=== PATIENT | female | born 1940 | race African-American/Black ===

== ENCOUNTER 2019-06-16 17:12 | Inpatient (IN) ==
[2019-06-16] MEDS ORDERED: ACETAMINOPHEN 325 MG TABLET PO PRN (19:47)
[2019-06-16] MEDS ORDERED: ALBUTEROL 2.5 MG/3 ML NEB RESP TX PRN (19:47)
[2019-06-16] MEDS ORDERED: AZITHROMYCIN INJ 500 MG in SODIUM CHLORIDE 0.9% 250 ML IV SCH (20:30)
[2019-06-16] MEDS: cefTRIAXone 1,000 MG in SYRINGE 1 EACH IV SCH (21:04)
[2019-06-16] MEDS: ENOXAPARIN 30 MG/0.3 ML SYRINGE SUBCUT SCH (21:05)
[2019-06-16] MEDS: OSELTAMIVIR 30 MG CAPSULE PO SCH (21:06)
[2019-06-17] MEDS: ALBUTEROL/IPRATROPIUM 3 ML NEB RESP TX SCH ×4 (00:39→20:20)
[2019-06-17 04:41] LABS: Amorphous Crystals,Urine Occasional /HPF (Few); Apearance,Urine CLOUDY (Clear); Bacteria,Urine Moderate /HPF (Few); Bilirubin,Urine Negative (Negative); Blood, Urine Small mg/dL (Negative); Glucose,Urine (UA) Negative (Negative); Hyaline Casts,Urine 3 /LPF (0-3); Ketones,Urine Negative (Negative); Mucus,Urine Occasional /LPF (Occasional); Nitrite,Urine Negative (Negative); Protein,Urine 30 MG/DL; RBC,Urine 4 /HPF (0-4); Squamous Epithelial Cell,Urine Few /HPF (0-10); Urine Color Amber (Yellow); Urine Specific Gravity 1.016 (1.001-1.035); WBC,Urine 1 /HPF (0-6)
[2019-06-17 07:53] LABS: Basophils % 0.2 % (0.0-0.8); Hematocrit 28.9 VOL% (35.7-47.0); Immature Granulocytes % 0.6 %; Immature Granulocytes Absolute 0.04 #; Lymphocytes % 14.9 % (21.3-54.2); Mean Corpuscular HGB Conc 31.1 GM/DL (32-36); Mean Corpuscular Volume 81.6 FL (87-102); Mean Platelet Volume 11.1 FL (9.6-12.0); Monocytes % 3.5 % (1.7-12.7); Neutrophils % 80.8 % (38.7-73.9); Platelet Count 223 T/CUMM (130-400); Red Blood Count 3.54 MC/CUMM (3.8-5.5); Red Cell Distribution Width 14.3 % (9.3-17.3); White Blood Count 6.4 T/CUMM (4-12)
[2019-06-17 08:10] LABS: Bilirubin,Total 0.5 MG/DL (0.2-1.0); Calcium 8.5 MG/DL (8.5-10.1); Osmolality,Calculated 286.5 MOS/KG (273-304); Total Protein 8.3 G/DL (6.4-8.3)
[2019-06-17 08:38] LABS: Atypical Lymphocytes Few; Band Neutrophils 1 % (0-10); Hypochromasia 1+; Lymphocytes 20 % (20-55); Microcytosis Slight; Segmented Neutrophils 76 % (50-85); Total Cells Counted 100
[2019-06-17 08:39] LABS: Acanthocytes Few; Ovalocytes Slight; Platelet Estimate Normal
[2019-06-17] MEDS: PANTOPRAZOLE 40 MG TABLET PO SCH (09:29)
[2019-06-17] MEDS: OSELTAMIVIR 30 MG CAPSULE PO SCH ×2 (09:29→21:03)
[2019-06-17] MEDS: AZITHROMYCIN 250 MG TABLET PO SCH (12:20)
[2019-06-17] MEDS: DEXTROSE 5% NACL 0.45% 1,000 ML IV SCH (14:24)
[2019-06-17] MEDS: ENOXAPARIN 30 MG/0.3 ML SYRINGE SUBCUT SCH (21:03)
[2019-06-17] MEDS: cefTRIAXone 1,000 MG in SYRINGE 1 EACH IV SCH (21:03)
[2019-06-17] MEDS: SIMVASTATIN 20 MG TABLET PO SCH (21:03)
[2019-06-18] MEDS: ALBUTEROL/IPRATROPIUM 3 ML NEB RESP TX SCH ×4 (01:15→19:20)
[2019-06-18] MEDS: DEXTROSE 5% NACL 0.45% 1,000 ML IV SCH ×2 (03:08→16:53)
[2019-06-18 05:40] LABS: Calcium 8.4 MG/DL (8.5-10.1); Osmolality,Calculated 287.5 MOS/KG (273-304)
[2019-06-18] MEDS: OSELTAMIVIR 30 MG CAPSULE PO SCH ×2 (08:19→22:20)
[2019-06-18] MEDS: ATENOLOL 50 MG TABLET PO SCH (08:19)
[2019-06-18] MEDS: PANTOPRAZOLE 40 MG TABLET PO SCH (08:19)
[2019-06-18] MEDS: AZITHROMYCIN 250 MG TABLET PO SCH (08:19)
[2019-06-18] MEDS ORDERED: INFLUENZA VIRUS VACCINE 0.5 ML SYRINGE IM ONE (09:00)
[2019-06-18] MEDS ORDERED: PNEUMOCOCCAL VACCINE (13 VALENT) 0.5 ML SYRINGE IM ONE (09:00)
[2019-06-18] MEDS: POTASSIUM CHLORIDE 20 MEQ TABLET PO PRN ×3 (16:53→22:19)
[2019-06-18] MEDS: cefTRIAXone 1,000 MG in SYRINGE 1 EACH IV SCH (20:57)
[2019-06-18] MEDS: ENOXAPARIN 30 MG/0.3 ML SYRINGE SUBCUT SCH (20:57)
[2019-06-18] MEDS: SIMVASTATIN 20 MG TABLET PO SCH (20:58)
[2019-06-19] MEDS: POTASSIUM CHLORIDE 20 MEQ TABLET PO PRN (00:13)
[2019-06-19] MEDS: ALBUTEROL/IPRATROPIUM 3 ML NEB RESP TX SCH ×4 (00:18→19:26)
[2019-06-19 05:26] LABS: Basophils % 0.2 % (0.0-0.8); Eosinophils # 0.1 10*3/uL (0.0-0.87); Eosinophils % 0.5 % (0.00-10.9); Hematocrit 31.6 VOL% (35.7-47.0); Hemoglobin 9.7 GM/DL (12.0-16.0); Immature Granulocytes % 1.1 %; Lymphocytes # 1.8 10*3/uL (1.4-4.0); Lymphocytes % 19.3 % (21.3-54.2); Mean Corpuscular HGB Conc 30.7 GM/DL (32-36); Mean Corpuscular Volume 82.9 FL (87-102); Mean Platelet Volume 11.3 FL (9.6-12.0); Monocytes % 5.3 % (1.7-12.7); Neutrophils % 73.6 % (38.7-73.9); Platelet Count 277 T/CUMM (130-400); Red Blood Count 3.81 MC/CUMM (3.8-5.5); Red Cell Distribution Width 14.6 % (9.3-17.3); White Blood Count 9.2 T/CUMM (4-12)
[2019-06-19 05:58] LABS: Calcium 8.4 MG/DL (8.5-10.1); Osmolality,Calculated 281.7 MOS/KG (273-304)
[2019-06-19] MEDS ORDERED: MAGNESIUM SULF RIDER 2 GM in PREMIX 1 EACH IV PRN (09:31)
[2019-06-19] MEDS ORDERED: MAGNESIUM SULF RIDER 4 GM in PREMIX 1 EACH IV PRN (09:31)
[2019-06-19] MEDS: AZITHROMYCIN 250 MG TABLET PO SCH (09:43)
[2019-06-19] MEDS: PANTOPRAZOLE 40 MG TABLET PO SCH (09:44)
[2019-06-19] MEDS: OSELTAMIVIR 30 MG CAPSULE PO SCH ×2 (09:44→21:02)
[2019-06-19] MEDS: cefTRIAXone 1,000 MG in SYRINGE 1 EACH IV SCH (09:52)
[2019-06-19] MEDS: ATENOLOL 50 MG TABLET PO SCH (10:28)
[2019-06-19] MEDS ORDERED: ENOXAPARIN 40 MG/0.4 ML SYRINGE SUBCUT SCH (21:00)
[2019-06-19] MEDS: SIMVASTATIN 20 MG TABLET PO SCH (21:03)
[2019-06-19] MEDS: DEXTROSE 5% NACL 0.45% 1,000 ML IV SCH (23:31)
[2019-06-20] MEDS: ALBUTEROL/IPRATROPIUM 3 ML NEB RESP TX SCH ×3 (00:27→13:58)
[2019-06-20 05:45] LABS: Basophils % 0.2 % (0.0-0.8); Eosinophils # 0.3 10*3/uL (0.0-0.87); Hematocrit 28.8 VOL% (35.7-47.0); Hemoglobin 8.9 GM/DL (12.0-16.0); Immature Granulocytes % 1.8 %; Immature Granulocytes Absolute 0.17 #; Lymphocytes # 2.3 10*3/uL (1.4-4.0); Lymphocytes % 25.2 % (21.3-54.2); Mean Corpuscular HGB Conc 30.9 GM/DL (32-36); Mean Corpuscular Volume 82.3 FL (87-102); Mean Platelet Volume 10.5 FL (9.6-12.0); Monocytes % 5.5 % (1.7-12.7); Neutrophils % 64.3 % (38.7-73.9); Platelet Count 261 T/CUMM (130-400); Red Cell Distribution Width 14.6 % (9.3-17.3); White Blood Count 9.3 T/CUMM (4-12)
[2019-06-20 06:02] LABS: Calcium 8.4 MG/DL (8.5-10.1)
[2019-06-20 06:28] LABS: Eosinophils 3 % (0-10); Hypochromasia Slight; Lymphocytes 21 % (20-55); Platelet Estimate Normal; Polychromasia Few; Segmented Neutrophils 74 % (50-85); Total Cells Counted 100
[2019-06-20] MEDS: ATENOLOL 50 MG TABLET PO SCH (08:29)
[2019-06-20] MEDS: PANTOPRAZOLE 40 MG TABLET PO SCH (08:29)
[2019-06-20] MEDS: cefTRIAXone 1,000 MG in SYRINGE 1 EACH IV SCH (08:30)
[2019-06-20] MEDS: AZITHROMYCIN 250 MG TABLET PO SCH (08:30)
[2019-06-20] MEDS: OSELTAMIVIR 30 MG CAPSULE PO SCH (08:30)
[2019-06-20] MEDS ORDERED: MAGNESIUM CHLORIDE 64 MG TABLET PO ONE (12:55)
[2019-06-20 15:43] VITALS: BP 110/67
== END 2019-06-20 18:23 | disposition home health service (06) | DRG 871 ==
LOC: N.ICU 19:23 → SUATTDRO 19:23 → N.2E 06-18 18:50
PROVIDERS: ADMIT Internal Medicine; ATTEND Internal Medicine

== ENCOUNTER 2019-07-06 18:46 | Observation (INO) ==
[2019-07-06] MEDS ORDERED: ACETAMINOPHEN 325 MG TABLET PO PRN (22:55)
[2019-07-06] MEDS ORDERED: DOCUSATE SODIUM 100 MG CAPSULE PO PRN (22:55)
[2019-07-06] MEDS ORDERED: ONDANSETRON 4 MG/2 ML VIAL IV PRN (22:55)
[2019-07-06] MEDS ORDERED: ALBUTEROL 2.5 MG/3 ML NEB RESP TX PRN (23:00)
[2019-07-06] MEDS ORDERED: MAGNESIUM SULF RIDER 2 GM in PREMIX 1 EACH IV PRN (23:03)
[2019-07-06] MEDS ORDERED: MAGNESIUM SULF RIDER 4 GM in PREMIX 1 EACH IV PRN (23:03)
[2019-07-06] MEDS ORDERED: POTASSIUM CHLORIDE 20 MEQ TABLET PO PRN (23:03)
[2019-07-06] MEDS ORDERED: ALBUTEROL/IPRATROPIUM 3 ML NEB RESP TX PRN (23:38)
[2019-07-07] MEDS ORDERED: ALBUTEROL/IPRATROPIUM 3 ML NEB RESP TX SCH (01:00)
[2019-07-07 05:27] LABS: PT Patient Result 11.3 SECS (9.6-12.2); Partial Thromboplastin Time 28.2 SECS (20.8-36.0)
[2019-07-07 05:37] LABS: Hematocrit 28.8 VOL% (35.7-47.0); Hemoglobin 8.9 GM/DL (12.0-16.0); Immature Granulocytes % 0.6 %; Immature Granulocytes Absolute 0.02 #; Lymphocytes % 27.9 % (21.3-54.2); Mean Corpuscular HGB Conc 30.9 GM/DL (32-36); Mean Corpuscular Volume 82.3 FL (87-102); Mean Platelet Volume 11.2 FL (9.6-12.0); Monocytes % 1.7 % (1.7-12.7); Neutrophils % 69.8 % (38.7-73.9); Platelet Count 175 T/CUMM (130-400); Red Cell Distribution Width 14.5 % (9.3-17.3); White Blood Count 3.5 T/CUMM (4-12)
[2019-07-07 05:46] LABS: Albumin 2.3 G/DL (3.4-5.0); Bilirubin,Total 0.4 MG/DL (0.2-1.0); Osmolality,Calculated 284.3 MOS/KG (273-304)
[2019-07-07 05:55] LABS: Folate 16.1 NG/ML (5.4-24.0); Vitamin B12 696 PG/ML (211-911)
[2019-07-07 05:58] LABS: % Iron Saturation 18.4 % (18-50); Ferritin 710.5 ng/ml (8-252)
[2019-07-07] MEDS: ENOXAPARIN 80 MG/0.8 ML SYRINGE SUBCUT SCH ×2 (06:13→18:02)
[2019-07-07 06:23] LABS: Sedimentation Rate-Westergren 118 MM/HR (0-30)
[2019-07-07] MEDS: atenoloL 50 MG TABLET PO SCH (08:44)
[2019-07-07] MEDS: PANTOPRAZOLE 40 MG TABLET PO SCH (08:44)
[2019-07-07] MEDS ORDERED: SIMVASTATIN 20 MG TABLET PO SCH (21:00)
[2019-07-08 05:18] LABS: Basophils % 0.6 % (0.0-0.8); Eosinophils # 0.1 10*3/uL (0.0-0.87); Eosinophils % 2.8 % (0.00-10.9); Hemoglobin 8.3 GM/DL (12.0-16.0); Immature Granulocytes % 0.2 %; Immature Granulocytes Absolute 0.01 #; Lymphocytes # 2.5 10*3/uL (1.4-4.0); Lymphocytes % 49.4 % (21.3-54.2); Mean Corpuscular HGB Conc 29.6 GM/DL (32-36); Mean Corpuscular Volume 84.6 FL (87-102); Mean Platelet Volume 11.1 FL (9.6-12.0); Monocytes % 7.5 % (1.7-12.7); Neutrophils % 39.5 % (38.7-73.9); Platelet Count 183 T/CUMM (130-400); Red Blood Count 3.31 MC/CUMM (3.8-5.5); Red Cell Distribution Width 14.6 % (9.3-17.3)
[2019-07-08 05:47] LABS: Calcium 8.7 MG/DL (8.5-10.1); Osmolality,Calculated 278.5 MOS/KG (273-304)
[2019-07-08] MEDS: ENOXAPARIN 80 MG/0.8 ML SYRINGE SUBCUT SCH (05:56)
[2019-07-08] MEDS: PANTOPRAZOLE 40 MG TABLET PO SCH (08:21)
[2019-07-08] MEDS: atenoloL 50 MG TABLET PO SCH (08:21)
[2019-07-08 09:44] LABS: Hemoglobin A1 (Alkaline) 97.3 % (96.5-98.5); Hemoglobin A2 (Alkaline) 2.7 % (1.5-3.5)
[2019-07-08 11:56] VITALS: BP 117/77
== END 2019-07-08 12:01 | disposition home or self-care (01) ==
LOC: N.4E 20:10 → INTOOBSV 20:10
PROVIDERS: ADMIT Internal Medicine; ATTEND Internal Medicine

== ENCOUNTER 2020-05-31 19:56 | Inpatient (IN) ==
[2020-05-31] MEDS ORDERED: FUROSEMIDE 40 MG/4 ML VIAL IV STA (20:21)
[2020-05-31] MEDS ORDERED: ONDANSETRON 4 MG/2 ML VIAL IV STA (20:21)
[2020-05-31] MEDS ORDERED: methylPREDNISolone SOD SUC 125 MG/2 ML VIAL IV STA (20:21)
[2020-05-31] MEDS ORDERED: PIPERACILLIN/TAZOBACTAM 3,375 MG in SODIUM CHLORIDE 0.9% 100 ML IV STA (20:21)
[2020-05-31 20:37] LABS: INR 1.1; PT Patient Result 11.4 SECS (9.8-11.9)
[2020-05-31 20:47] LABS: Albumin 3.2 G/DL (3.4-5.0); Bilirubin,Total 0.8 MG/DL (0.2-1.0); Calcium 8.1 MG/DL (8.5-10.1); Total Protein 7.7 G/DL (6.4-8.3)
[2020-05-31] MEDS ORDERED: MAGNESIUM SULF RIDER 2 GM in PREMIX 1 EACH IV STA (20:50)
[2020-05-31] MEDS ORDERED: SODIUM CHLORIDE 0.9% 1,000 ML IV STA (20:50)
[2020-05-31] MEDS ORDERED: ALBUTEROL NEB SOLN 5 MG/ML 20 ML/BOTTLE CONT NEB SCH (21:00)
[2020-05-31 21:02] LABS: ABG Base Excess 0.2 MMOL/L (-2.5-2.5); ABG HCO3 24.2 MMOL/L (20-26); ABG Oxygen Saturation 78.9 % (95-100); ABG PCO2 30.7 MM HG (35-48); ABG PH 7.479 (7.35-7.45); ABG PO2 43.1 MM HG (80-95); ABG TCO2 20.2 MMOL/L (23-27)
[2020-05-31] MEDS ORDERED: POTASSIUM CHLORIDE RIDER 20 MEQ in PREMIX 1 EACH IV STA (21:29)
[2020-05-31] MEDS ORDERED: HEPARIN 5,000 UNIT/1 ML VIAL IV STA (21:35)
[2020-05-31] MEDS ORDERED: MORPHINE 4 MG/1 ML VIAL IV PRN (22:26)
[2020-05-31] MEDS ORDERED: ALBUTEROL 2.5 MG/3 ML NEB RESP TX PRN (22:26)
[2020-05-31] MEDS ORDERED: hydrALAZINE 20 MG/1 ML VIAL IV PRN (22:26)
[2020-05-31] MEDS ORDERED: ONDANSETRON 4 MG/2 ML VIAL IV PRN (22:26)
[2020-05-31] MEDS ORDERED: ACETAMINOPHEN 325 MG TABLET PO PRN (22:26)
[2020-05-31] MEDS ORDERED: MAGNESIUM SULF RIDER 4 GM in PREMIX 1 EACH IV PRN (22:34)
[2020-05-31] MEDS ORDERED: MAGNESIUM SULF RIDER 2 GM in PREMIX 1 EACH IV PRN (22:34)
[2020-05-31] MEDS ORDERED: ALBUTEROL INHALER 18 GM INH PRN (22:49)
[2020-05-31 22:56] LABS: Bacteria,Urine Occasional /HPF (Few); Bilirubin,Urine Negative (Negative); Blood, Urine Small mg/dL (Negative); Glucose,Urine (UA) Negative (Negative); Ketones,Urine Negative (Negative); Mucus,Urine Occasional /LPF (Occasional); Nitrite,Urine Negative (Negative); Protein,Urine 100 MG/DL; RBC,Urine 1 /HPF (0-4); Squamous Epithelial Cell,Urine Occasional /HPF (0-10); Urine Appearance CLEAR (Clear); Urine Color Yellow (Yellow); Urine Specific Gravity 1.013 (1.001-1.035); Urine Urobilinogen < 2.0 EU/DL (0.2-1.0); WBC,Urine 1 /HPF (0-6)
[2020-05-31] MEDS: FAMOTIDINE 20 MG/2 ML VIAL IV SCH (23:12)
[2020-05-31] MEDS: POTASSIUM CHLORIDE RIDER 10 MEQ in PREMIX 1 EACH IV SCH (23:15)
[2020-05-31 23:40] VITALS: BP 125/74
[2020-06-01] MEDS: FAMOTIDINE 20 MG/2 ML VIAL IV SCH ×2 (00:04→08:30)
[2020-06-01] MEDS: HEPARIN DRIP 25,000 UNITS/500 ML PREMIX IV SCH ×2 (00:05→21:24)
[2020-06-01] MEDS: POTASSIUM CHLORIDE RIDER 10 MEQ in PREMIX 1 EACH IV SCH (02:07)
[2020-06-01] MEDS ORDERED: AZITHROMYCIN INJ 500 MG in SODIUM CHLORIDE 0.9% 250 ML IV SCH (02:30)
[2020-06-01] MEDS: cefTRIAXone 1,000 MG in SYRINGE 1 EACH IV SCH (02:36)
[2020-06-01 02:37] LABS: Basophils % 0.1 % (0.0-0.8); Hematocrit 33.9 VOL% (35.7-47.0); Hemoglobin 11.1 GM/DL (12.0-16.0); Immature Granulocytes % 0.3 %; Immature Granulocytes Absolute 0.03 #; Lymphocytes # 0.2 10*3/uL (1.4-4.0); Lymphocytes % 2.5 % (21.3-54.2); Mean Corpuscular HGB Conc 32.7 GM/DL (32-36); Mean Corpuscular Volume 83.1 FL (87-102); Mean Platelet Volume 11.4 FL (9.6-12.0); Monocytes % 2.2 % (1.7-12.7); Neutrophils % 94.9 % (38.7-73.9); Platelet Count 115 T/CUMM (130-400); Red Blood Count 4.08 MC/CUMM (3.8-5.5); White Blood Count 8.7 T/CUMM (4-12)
[2020-06-01 03:16] LABS: Albumin 2.7 G/DL (3.4-5.0); Bilirubin,Total 0.7 MG/DL (0.2-1.0); Calcium 7.7 MG/DL (8.5-10.1); Osmolality,Calculated 280.8 MOS/KG (273-304); Total Protein 6.8 G/DL (6.4-8.3)
[2020-06-01] MEDS: ALBUTEROL INHALER 18 GM INH SCH ×5 (04:22→21:24)
[2020-06-01 05:00] LABS: Band Neutrophils 2 % (0-10); Platelet Estimate Decreased; Segmented Neutrophils 96 % (50-85); Total Cells Counted 100
[2020-06-01 05:01] LABS: Hypochromasia 1+; Microcytosis 1+
[2020-06-01] MEDS: methylPREDNISolone SOD SUC 125 MG/2 ML VIAL IV SCH ×3 (05:43→21:24)
[2020-06-01] MEDS: POTASSIUM CHLORIDE RIDER 10 MEQ in PREMIX 1 EACH IV PRN ×2 (05:44→09:01)
[2020-06-01 05:46] LABS: ABG Base Excess -2.1 MMOL/L (-2.5-2.5); ABG HCO3 22.6 MMOL/L (20-26); ABG Oxygen Saturation 93.1 % (95-100); ABG PCO2 43.7 MM HG (35-48); ABG PH 7.343 (7.35-7.45); ABG PO2 69.4 MM HG (80-95); ABG TCO2 21.4 MMOL/L (23-27)
[2020-06-01] MEDS ORDERED: DEXAMETHASONE 10 MG/1 ML VIAL IV SCH (09:00)
[2020-06-01] MEDS ORDERED: PNEUMOCOCCAL VACCINE (13 VALENT) 0.5 ML SYRINGE IM ONE (09:00)
[2020-06-01] MEDS: CETIRIZINE 10 MG TABLET PO SCH (09:01)
[2020-06-01] MEDS: ZINC SULFATE 220 MG CAPSULE PO SCH (09:01)
[2020-06-01] MEDS: ASCORBIC ACID 500 MG TABLET PO SCH (09:01)
[2020-06-01] MEDS: CHOLECALCIFEROL 1,000 UNIT TABLET PO SCH (09:01)
[2020-06-01] MEDS: AZITHROMYCIN 250 MG TABLET PO SCH (09:01)
[2020-06-01] MEDS ORDERED: FAMOTIDINE 20 MG/2 ML VIAL IV SCH (09:30)
[2020-06-01] MEDS ORDERED: LACTATED RINGERS 1,000 ML IV SCH (11:00)
[2020-06-02] MEDS: ALBUTEROL INHALER 18 GM INH SCH ×7 (00:09→23:41)
[2020-06-02] MEDS: cefTRIAXone 1,000 MG in SYRINGE 1 EACH IV SCH (03:10)
[2020-06-02 04:40] LABS: Hematocrit 37.9 VOL% (35.7-47.0); Hemoglobin 12.3 GM/DL (12.0-16.0); Immature Granulocytes % 0.3 %; Immature Granulocytes Absolute 0.02 #; Lymphocytes # 0.8 10*3/uL (1.4-4.0); Lymphocytes % 11.3 % (21.3-54.2); Mean Corpuscular HGB Conc 32.5 GM/DL (32-36); Mean Corpuscular Volume 83.3 FL (87-102); Mean Platelet Volume 12.3 FL (9.6-12.0); Monocytes % 3.5 % (1.7-12.7); Neutrophils % 84.9 % (38.7-73.9); Platelet Count 106 T/CUMM (130-400); Red Blood Count 4.55 MC/CUMM (3.8-5.5); Red Cell Distribution Width 13.1 % (9.3-17.3); White Blood Count 6.9 T/CUMM (4-12)
[2020-06-02 04:58] LABS: Hypochromasia 1+
[2020-06-02 04:59] LABS: Microcytosis 1+; Platelet Estimate Decreased
[2020-06-02 05:22] LABS: Albumin 2.6 G/DL (3.4-5.0); Bilirubin,Total 0.4 MG/DL (0.2-1.0); Calcium 8.2 MG/DL (8.5-10.1); Osmolality,Calculated 290.3 MOS/KG (273-304); Total Protein 7.4 G/DL (6.4-8.3)
[2020-06-02] MEDS: HEPARIN DRIP 25,000 UNITS/500 ML PREMIX IV SCH ×2 (05:37→23:41)
[2020-06-02] MEDS: methylPREDNISolone SOD SUC 125 MG/2 ML VIAL IV SCH ×3 (06:28→21:05)
[2020-06-02] MEDS: AZITHROMYCIN 250 MG TABLET PO SCH (08:29)
[2020-06-02] MEDS: CHOLECALCIFEROL 1,000 UNIT TABLET PO SCH (08:29)
[2020-06-02] MEDS: ASCORBIC ACID 500 MG TABLET PO SCH (08:30)
[2020-06-02] MEDS: CETIRIZINE 10 MG TABLET PO SCH (08:30)
[2020-06-02] MEDS: FAMOTIDINE 20 MG/2 ML VIAL IV SCH (08:30)
[2020-06-03] MEDS: cefTRIAXone 1,000 MG in SYRINGE 1 EACH IV SCH (03:27)
[2020-06-03] MEDS: ALBUTEROL INHALER 18 GM INH SCH ×4 (03:48→16:51)
[2020-06-03 04:42] LABS: Basophils % 0.1 % (0.0-0.8); Hematocrit 36.4 VOL% (35.7-47.0); Hemoglobin 11.6 GM/DL (12.0-16.0); Immature Granulocytes % 0.4 %; Immature Granulocytes Absolute 0.04 #; Lymphocytes # 0.3 10*3/uL (1.4-4.0); Lymphocytes % 2.7 % (21.3-54.2); Mean Corpuscular HGB Conc 31.9 GM/DL (32-36); Mean Corpuscular Volume 84.1 FL (87-102); Mean Platelet Volume 12.2 FL (9.6-12.0); Neutrophils % 94.8 % (38.7-73.9); Platelet Count 139 T/CUMM (130-400); Red Blood Count 4.33 MC/CUMM (3.8-5.5); Red Cell Distribution Width 13.1 % (9.3-17.3)
[2020-06-03 04:53] LABS: Calcium 8.2 MG/DL (8.5-10.1); Osmolality,Calculated 300.8 MOS/KG (273-304)
[2020-06-03 05:06] LABS: Albumin 2.7 G/DL (3.4-5.0); Bilirubin,Total 0.5 MG/DL (0.2-1.0); Calcium 8.1 MG/DL (8.5-10.1); Hypochromasia 1+; Lymphocytes 3 % (20-55); Microcytosis 1+; Ovalocytes Slight; Platelet Estimate Adequate; Segmented Neutrophils 96 % (50-85); Total Cells Counted 100; Total Protein 6.7 G/DL (6.4-8.3)
[2020-06-03] MEDS: methylPREDNISolone SOD SUC 125 MG/2 ML VIAL IV SCH (05:55)
[2020-06-03] MEDS ORDERED: BENZONATATE 100 MG CAPSULE PO PRN (08:41)
[2020-06-03] MEDS ORDERED: LORazepam 2 MG/1 ML VIAL IV PRN (08:41)
[2020-06-03] MEDS ORDERED: guaiFENesin 200 MG/10 ML UDCUP PO PRN (08:41)
[2020-06-03] MEDS ORDERED: LORazepam 2 MG/1 ML VIAL ONE (09:35)
[2020-06-03] MEDS: ASCORBIC ACID 500 MG TABLET PO SCH (09:46)
[2020-06-03] MEDS: CHOLECALCIFEROL 1,000 UNIT TABLET PO SCH (09:46)
[2020-06-03] MEDS: FAMOTIDINE 20 MG/2 ML VIAL IV SCH (09:46)
[2020-06-03] MEDS: CETIRIZINE 10 MG TABLET PO SCH (09:46)
[2020-06-03] MEDS: AZITHROMYCIN 250 MG TABLET PO SCH (09:46)
[2020-06-03] MEDS: ZINC SULFATE 220 MG CAPSULE PO SCH (09:46)
[2020-06-03] MEDS: MORPHINE 4 MG/1 ML VIAL IV PRN ×3 (10:45→14:48)
[2020-06-03] MEDS ORDERED: LORazepam 2 MG/1 ML VIAL IV ONE (14:42)
[2020-06-03] MEDS ORDERED: methylPREDNISolone SOD SUC 125 MG/2 ML VIAL IV SCH (16:00)
[2020-06-05] MEDS ORDERED: PNEUMOCOCCAL VACCINE (13 VALENT) 0.5 ML SYRINGE IM ONE (12:00)
== END 2020-06-03 15:22 | disposition expired | DRG 177 ==
LOC: EDUNIT# → EDBD → N.ED 19:56 → N.EDINP 22:06 → N.CC 22:43
PROVIDERS: ADMIT Family Medicine; ATTEND Family Medicine